=== PATIENT | female | born 1960 | race Caucasian/White ===

== ENCOUNTER 2017-06-29 21:57 | Emergency (ER) | payer OTHER ==
[~2017-06-29] VITALS: Ht 172.7 cm; Wt 81.7 kg
[2017-06-29 22:04] VITALS: BP 159/78
[2017-06-29] MEDS ORDERED: DOXYCYCLINE 10100 M1 PO (22:26)
[2017-06-29] MEDS ORDERED: ATENOLOL 100MG100 MG PO (22:35)
[2017-06-29] MEDS ORDERED: VICODIN 5-3001 EACH PO (22:35)
[2017-06-29] MEDS ORDERED: PREDNISONE 10 M10 M1 PO (22:35)
== END 2017-06-29 22:36 | disposition home or self-care (01) ==
LOC: M.ERS 21:57
DX: L03.114 Cellulitis of left upper limb (principal); Z88.2 Allergy status to sulfonamides; Z88.8 Allergy status to other drugs, medicaments and biological substances; Z90.49 Acquired absence of other specified parts of digestive tract